=== PATIENT | female | born 1980 | race Caucasian/White ===

== ENCOUNTER 2016-12-04 02:13 | Emergency (ER) | payer OTHER ==
[~2016-12-04] VITALS: Ht 157.5 cm; Wt 54.4 kg
--- NOTE | ~2016-12-04 | CT2 ---
[facility] A Service [facility] RADIOLOGY TEXT RESULTS PATIENT: JUAN THOMAS LOCATION: SED : 80 UNIT #: [id number] AGE: [address]: Jose Elias Mullen MD SEX: F ORDER DR: [id number] [place] [id number] E MR#: [id number] Acc #: [id number] NAME: JUAN THOMAS : 1980 SEX: F STUDY DATE/TIME: 12/04/2016 04:04 UNIT: SED ROOM: STUDY DESCRIPTION: CT Abd and Pelv W Cont Attending Physician: Jose Elias Mullen M.D. Ordering Physician: Jose Elias Mullen M.D. Primary Care Physician: Primary Care Physician No MEDICAL IMAGING REPORT This report is preliminary unless electronic signature is present. EXAM CT abdomen and pelvis 12/04/2016 at 0404 hours INDICATION Lower bilateral abdominal pain over the last 2 weeks. TECHNIQUE Axial images were obtained through the abdomen and pelvis following IV contrast administration. Multiplanar reformats were obtained. Comparison made with 11/09/2014. This CT examination was performed with one or more of the following radiation dose reduction techniques: automatic exposure control, adjustment of mA and/or kV according to patient size, and iterative reconstruction. FINDINGS ABDOMEN: Lung bases are clear. Gallbladder normal. There is diffuse fatty infiltration of the liver. Solid organs are otherwise normal. No free fluid or adenopathy. The unopacified GI tract is normal. PELVIS: The appendix is surgically absent. Unopacified GI tract is otherwise normal. Urinary bladder is normal. Solid pelvic organs are normal. No free fluid. IMPRESSION 1. No acute findings in the abdomen or pelvis. 2. Interval appendectomy, otherwise normal unopacified GI tract. 3. Hepatic steatosis. 4. Normal nonobstructed kidneys. Dictated by... Joseph Padron Jr., M.D. [facility] A Service [facility] RADIOLOGY TEXT RESULTS PATIENT: JUAN THOMAS LOCATION: SED : 80 UNIT #: [id number] AGE: [address]: Jose Elias Mullen MD SEX: F ORDER DR: THIS IS AN ELECTRONICALLY VERIFIED REPORT Joseph Padron Jr., M.D. at 12/05/2016 5:52 AM AMAURY/vignesh TD: 12/04/2016 10:30 JOB #: [id number] MEDICAL IMAGING REPORT Page 1 of 1
[~2016-12-04 02:13] MED LIST: ATENOLOL PO; BENADRYL PO; ERYTHROMYC3.5 GM OPT OP; HYDROCODON-ACE1 EAC9 PO; HYDROXYZINE HCL50 MG PO; LEXAPRO PO; OMEPRAZOLE40 MG PO; PERCOCET 5-3251 TAB PO; SEPTRA DS PO; VISTARIL PO; VOLTAREN75 MG PO; XANAX0.5 M1 PO
[2016-12-04] MEDS ORDERED: BACTRIM DS TAB1 EACH PO (02:29)
[2016-12-04] MEDS ORDERED: MEDROL DOSEPAK4 MG PO (02:30)
[2016-12-04 03:32] LABS: BASOPHIL% 0.4 % (0-2.5); HEMOGLOBIN 12.8 gm/dL (12.0-16.0); LYMPHOCYTE# 1.6 X10e3 (1.0-3.5); LYMPHOCYTE% 21.5 % (17.0-45.0); MEAN CELL VOLUME 99.1 FL (83-96); MEAN CORPUSCULAR HEMOGLOBIN 33.4 PG (28-34); MEAN CORPUSCULAR HGB CONC 33.7 g/dL (30-36); MEAN PLATELET VOLUME 7.3 FL (6.5-11.5); MONOCYTE# 0.4 X10e3 (0-1.0); MONOCYTE% 5.2 % (3.0-12.0); NEUTROPHIL# 5.4 X10e3 (1.5-7.1); NEUTROPHIL% 72.9 % (40-75); PLATELET COUNT 399 X10e3 (140-420); RED BLOOD COUNT 3.84 X10e (3.90-5.30); RED CELL DISTRIBUTION WIDTH 12.6 % (11.0-15.5); WHITE BLOOD COUNT 7.4 X10e3 (4.0-10.5)
[2016-12-04 03:33] LABS: DIFF IND NO
[2016-12-04 03:39] LABS: URINE SOURCE CLEAN CATCH
[2016-12-04 03:40] LABS: ALBUMIN SERUM 4.3 g/dL (3.5-5.0); ALKALINE PHOSPHATASE 72 U/L (32-92); ALT (SGPT) 66 U/L (10-40); AST (SGOT) 80 U/L (10-42); BILIRUBIN, DIRECT <0.1 mg/dL (0.0-0.2); BILIRUBIN,INDIRECT 0.3 mg/dL (0.0-0.9); BILIRUBIN,TOTAL 0.4 mg/dL (0.2-2.0); BLOOD UREA NITROGEN 16 mg/dL (9-23); CALCIUM SERUM 8.7 mg/dL (8.4-10.2); CARBON DIOXIDE 21 mmol/L (22-31); CHLORIDE 104 mmol/L (100-111); CREATININE SERUM 0.5 mg/dL (0.6-1.4); GLOM FILT RATE Estimated 124.5 mL/min (>60); GLUCOSE FASTING 119 mg/dL (70-110); POTASSIUM 3.4 mmol/L (3.5-5.1); PROTEIN TOTAL SERUM 7.2 g/dL (6.0-8.3); SODIUM 134 mmol/L (135-145)
[2016-12-04 03:41] LABS: URINE APPEARANCE HAZY; URINE BILIRUBIN NEG (NEG); URINE BLOOD 3+ (NEG); URINE COLOR YELLOW; URINE GLUCOSE NEG (NORM); URINE KETONE TRACE (NEG); URINE LEUKOCYTE ESTERASE NEG (NEG); URINE NITRATE NEG (NEG); URINE PROTEIN TRACE (NEG); URINE SPECIFIC GRAVITY >=1.030 (1.003-1.035)
[2016-12-04 03:43] LABS: MICRO INDICATED? YES
[2016-12-04 03:50] LABS: CULTURE INDICATED? YES; URINE AMORPHOUS SEDIMENT AMORP URATES; URINE BACTERIA 1+ (NEG); URINE MUCUS PRESENT; URINE SQUAMOUS EPITHELIAL CELL MODERATE /[HPF]; URINE TRANSITIONAL EPI CELLS FEW /[HPF]
== END 2016-12-04 05:23 | disposition home or self-care (01) ==
LOC: SED 02:13
PROVIDERS: Emergency Medicine
DX: R10.30 Lower abdominal pain, unspecified (principal); R31.9 Hematuria, unspecified; M54.5 Low back pain; F17.210 Nicotine dependence, cigarettes, uncomplicated; Z79.899 Other long term (current) drug therapy
CPT/HCPCS: 36415; 74177; 80048; 80076; 81003; 85025; 87086; 96361; 96374; 99284; J1885; Q9967